=== PATIENT | female | born 1985 | race Caucasian/White ===

== ENCOUNTER 2018-07-27 09:03 | Emergency (ER) | payer MEDICAID ==
[~2018-07-27] VITALS: Ht 157.5 cm; Wt 91.6 kg
[2018-07-27] MEDS ORDERED: CA C1TAB60 PO (09:24)
[2018-07-27] MEDS ORDERED: LEVO125T5 PO (09:24)
[2018-07-27] MEDS ORDERED: IRON15TA3 PO (09:24)
[2018-07-27] MEDS ORDERED: AZITHROMYCIN 500 MG TABLET PO ONE (10:00)
[2018-07-27] MEDS ORDERED: CEFTRIAXONE 250 MG IM ONE (10:00)
[2018-07-27 10:06] LABS: HCG UR SG 1.013 (1.003-1.030); MICROSCOPIC AUTO
[2018-07-27 10:08] LABS: CULTURE INDICATED? YES
[2018-07-27 10:12] LABS: BASOPHILS # (AUTO) 0.05 x10^3/uL (0-0.1); BASOPHILS % (AUTO) 1 % (0-1); EOSINOPHILS # (AUTO) 0.17 x10^3/uL (0-0.4); EOSINOPHILS % (AUTO) 2 % (1-7); LYMPHOCYTES # (AUTO) 3.01 x10^3/uL (1-3.4); LYMPHOCYTES % (AUTO) 38 % (22-44); MD NO; MEAN CORPUSCULAR HEMOGLOBIN 19.2 pg (27.0-34.8); MEAN CORPUSCULAR HGB CONC 30.8 g/dL (32.4-35.8); MEAN CORPUSCULAR VOLUME 62.1 fL (80-100); MEAN PLATELET VOLUME 8.1 fL (7.4-10.4); MONOCYTES # (AUTO) 0.47 x10^3/uL (0.2-0.8); MONOCYTES % (AUTO) 6 % (2-9); NEUTROPHILS # (AUTO) 4.32 x10^3/uL (1.8-6.8); NEUTROPHILS % (AUTO) 54 % (42-75); PLATELET COUNT 320 x10^3/uL (130-400); RED CELL DISTRIBUTION WIDTH 16.9 % (9.6-15.2)
[2018-07-27 10:22] LABS: ALANINE AMINOTRANSFERASE 33 U/L (12-78); ALBUMIN 3.9 g/dL (3.4-5.0); ANION GAP 8 mmol/L (5-15); CALCIUM 8.8 mg/dL (8.5-10.1); CHLORIDE 107 mmol/L (98-107); CREATININE 0.79 mg/dL (0.55-1.02)
[2018-07-27 10:24] LABS: ALKALINE PHOSPHATASE 128 U/L (45-117); BILIRUBIN,TOTAL 0.2 mg/dL (0.2-1.0)
[2018-07-27 10:39] LABS: CLUE CELLS NONE SEEN (NONE SEEN); WET PREP WBCS MANY (FEW)
[2018-07-27] MEDS ORDERED: CEFTRIAXONE 250 MG ONE (11:10)
[2018-07-27] MEDS ORDERED: LIDOCAINE-MPF 1%, 2ML ONE (11:10)
[2018-07-27] MEDS ORDERED: AZITHROMYCIN 250 MG TABLET ONE (11:20)
[2018-07-27 11:34] VITALS: BP 129/80
== END 2018-07-27 11:46 | disposition home or self-care (01) ==
LOC: ED 11:19
DX: N89.8 Other specified noninflammatory disorders of vagina (principal)
CPT/HCPCS: 36415; 80053; 81001; 81025; 85025; 87086; 87210; 87491; 87591; 87808; 96372; 99284; J0696